=== PATIENT | male | born 1990 ===

== ENCOUNTER → 2025-07-08 15:53 | Outpatient (CLI) | payer OTHER, SELFPAY ==
[2025-07-08 17:03] LABS: Natera Collection Specimen Collected
== END ==
PROVIDERS: Referring Provider Obstetrics & Gynecology; Visit Provider Obstetrics & Gynecology
DX: Z31.440 Encounter of male for testing for genetic disease carrier status for procreative management (principal)
CPT/HCPCS: 36415